=== PATIENT | male | born 1965 | race Two or more races ===

== ENCOUNTER 2020-03-15 12:29 | Emergency (ER) | payer OTHER ==
[~2020-03-15] VITALS: Ht 170.2 cm; Wt 83.3 kg
--- NOTE | 2020-03-15 12:40 | NUR ---
Called [employer] to report dog bite. Spoke with Sallie.
[2020-03-15] MEDS ORDERED: rabies immune globulin/PF 150 unit/ml inj IMVAC ONE (13:00)
[2020-03-15] MEDS ORDERED: TETanus/Pertussis (Acell)/Diphther VAC/PF (Tdap-Adult) 0.5ml syringe IMVAC ONE (13:00)
[2020-03-15] MEDS ORDERED: bacitracin 15gm ointment TP ONE (13:00)
[2020-03-15] MEDS ORDERED: rabies vaccine (PCEC)/PF 2.5 unit kit IMVAC ONE (13:00)
[2020-03-15] MEDS ORDERED: AMOX-117 PO (13:40)
[2020-03-15 15:09] VITALS: BP 147/98
== END 2020-03-15 15:11 | disposition home or self-care (01) ==
LOC: ER 12:30
DX: S51.832A Puncture wound without foreign body of left forearm, initial encounter (principal); Z79.899 Other long term (current) drug therapy; W54.0XXA Bitten by dog, initial encounter; Y93.89 Activity, other specified; Y92.89 Other specified places as the place of occurrence of the external cause; Y99.8 Other external cause status
CPT/HCPCS: 73090; 90375; 90471; 90472; 90675; 90715; 96372; 99284

== ENCOUNTER 2020-03-18 08:17 | Emergency (ER) | payer OTHER ==
[~2020-03-18] VITALS: Ht 170.2 cm; Wt 79.5 kg
[~2020-03-18 08:17] MED LIST: AMOX-117 PO
[2020-03-18] MEDS ORDERED: rabies vaccine (PCEC)/PF 2.5 unit kit IMVAC ONE (09:05)
[2020-03-18 09:46] VITALS: BP 149/87
== END 2020-03-18 09:48 | disposition home or self-care (01) ==
LOC: ER 08:17
DX: R60.9 Edema, unspecified (principal); Z79.899 Other long term (current) drug therapy; Z23 Encounter for immunization
CPT/HCPCS: 90471; 90675; 99281

== ENCOUNTER 2020-03-22 08:11 | Emergency (ER) | payer OTHER ==
[~2020-03-22] VITALS: Ht 170.2 cm; Wt 81.8 kg
[2020-03-22 08:23] VITALS: BP 161/89
[2020-03-22] MEDS ORDERED: rabies vaccine (PCEC)/PF 2.5 unit kit IMVAC ONE (08:35)
== END 2020-03-22 08:45 | disposition home or self-care (01) ==
LOC: ER 08:13
DX: S41.152D Open bite of left upper arm, subsequent encounter (principal); W54.0XXD Bitten by dog, subsequent encounter; Z79.899 Other long term (current) drug therapy
CPT/HCPCS: 90471; 90675; 99281

== ENCOUNTER 2020-03-29 09:01 | Emergency (ER) | payer OTHER ==
[~2020-03-29] VITALS: Ht 170.2 cm; Wt 81.8 kg
[2020-03-29 09:07] VITALS: BP 152/99
[2020-03-29] MEDS ORDERED: rabies vaccine (PCEC)/PF 2.5 unit kit IMVAC ONE (09:15)
== END 2020-03-29 09:50 | disposition home or self-care (01) ==
LOC: ER 09:02
DX: Z23 Encounter for immunization (principal); S41.152D Open bite of left upper arm, subsequent encounter; W54.0XXD Bitten by dog, subsequent encounter
CPT/HCPCS: 90471; 90675; 99281

== ENCOUNTER 2020-05-23 13:34 | Emergency (ER) | payer OTHER ==
[~2020-05-23] VITALS: Ht 170.2 cm; Wt 81.8 kg
[2020-05-23 13:48] VITALS: BP 167/102
[2020-05-23] MEDS ORDERED: TETRACAINE 0.5% 4 ML OPHTHALMIC DROPS RIGHTEYE ONE (15:15)
[2020-05-23] MEDS ORDERED: erythromycin ophthalmic ointment 1gm tube RIGHTEYE ONE (15:15)
[2020-05-23] MEDS ORDERED: ERYT1OIN6 LEFTEYE (15:16)
[2020-05-23] MEDS ORDERED: proparacaine 0.5% ophthalmic drops 15ml RIGHTEYE ONE (15:30)
== END 2020-05-23 15:50 | disposition home or self-care (01) ==
LOC: ER 13:35
DX: S05.02XA Injury of conjunctiva and corneal abrasion without foreign body, left eye, initial encounter (principal); Z79.2 Long term (current) use of antibiotics; X58.XXXA Exposure to other specified factors, initial encounter; Y93.89 Activity, other specified; Y92.89 Other specified places as the place of occurrence of the external cause; Y99.8 Other external cause status
CPT/HCPCS: 99283